=== PATIENT | male | born 1935 | race Caucasian/White ===

== ENCOUNTER 2021-03-11 13:21 | Emergency (ER) | payer MEDICARE ==
[2021-03-11] MEDS ORDERED: Lidocaine 1% (PF) 30 ML VIAL ONE (13:56)
== END 2021-03-11 14:23 | disposition home or self-care (01) ==
LOC: NAV ERS 13:21
DX: S60.221A Contusion of right hand, initial encounter (principal); E78.5 Hyperlipidemia, unspecified; Z79.899 Other long term (current) drug therapy; X58.XXXA Exposure to other specified factors, initial encounter
CPT/HCPCS: 10140; J2001

== ENCOUNTER 2023-03-13 09:29 | Emergency (ER) | payer OTHER, MEDICARE ==
[2023-03-13 10:37] LABS: #Basophils 0.1 thou/uL (0.0-0.2); #Eosinphils 0.3 thou/uL (0.0-0.7); #Lymphocytes 1.1 thou/uL (1.20-3.40); #Monocytes 0.7 thou/uL (0.11-0.59); #Neutrophils 5.8 thou/uL (1.40-6.50); %Basophils 0.9 % (0.0-1.0); %Eosinophils 4.1 % (0.0-10.0); %Lymphocytes 13.9 % (21.0-51.0); %Monocytes 8.7 % (0.0-10.0); %Neutrophils 72.3 % (42.0-75.0); Hemoglobin 12.9 g/dL (14.0-18.0); Mean Corpuscular HGB CONC 32.6 g/dL (32.0-36.0); Mean Corpuscular Hemoglobin 32.9 pg (27.0-31.0); Mean Platelet Volume 7.2 fL (7.4-10.4); Platelet Count 195 10x3/uL (130-400); RBC Distribution Width 13.3 % (11.5-14.5); Red Blood Cell (RBC) Count 3.91 mill/uL (4.70-6.10)
[2023-03-13 10:43] LABS: Prothrombin Time 13.1 sec (12.0-14.7)
[2023-03-13 10:44] LABS: PTT 31.9 sec (22.9-36.1)
== END 2023-03-13 11:31 | disposition home or self-care (01) ==
LOC: NAV ERS 09:29
DX: S62.627A Displaced fracture of middle phalanx of left little finger, initial encounter for closed fracture (principal); S02.2XXA Fracture of nasal bones, initial encounter for closed fracture; S00.83XA Contusion of other part of head, initial encounter; E78.00 Pure hypercholesterolemia, unspecified; D64.9 Anemia, unspecified; Z86.73 Personal history of transient ischemic attack (TIA), and cerebral infarction without residual deficits; Z79.899 Other long term (current) drug therapy; Z79.82 Long term (current) use of aspirin; W23.0XXA Caught, crushed, jammed, or pinched between moving objects, initial encounter; W01.198A Fall on same level from slipping, tripping and stumbling with subsequent striking against other object, initial encounter
CPT/HCPCS: 36415; 70450; 70486; 72125; 85025; 85610; 85730